=== PATIENT | female | born 1935 | race Caucasian/White ===

== ENCOUNTER → 2017-11-20 | Outpatient (CLI) | payer MEDICARE, BC ==
[~2017-11-20] MED LIST: ACET-1748 PO; ASPI-715 PO; ATEN-1 PO; DIG125 PO; ENAL20TA99 PO; ENOX120D5 SQ; FLEC50TA16 PO; HCTZ25 PO; LEVO100T95 PO; SIMV-42 PO; WAR5 PO; ZOL5 PO
--- NOTE | 2017-11-21 09:06 | RADIOLOGY IMAGING REPORT ---
FAC[facility] PATIENT NAME: EUN BRYSON : [id number] MR: [id number] V: [id number] EXAM DATE: ORDERING PHYSICIAN: TAHMINA ALMANZA TECHNOLOGIST: Phoebe Gilliland PROCEDURE:BILATERAL DIGITAL SCREENING MAMMOGRAM WITH CAD ASSISTED INTERPRETATION & 3D TOMOSYNTHESIS COMPARISON:Prior mammograms 10/07/16, 06/05/15, 03/02/14, 12/22/12, 11/25/11, 11/21/10 INDICATIONS:SCREENING FINDINGS: Small amount of mildly heterogeneous fibroglandular tissue is seen throughout the breasts. The parenchymal pattern has remained stable allowing for difference in mammographic technique & patient positioning. There is no evidence of malignant appearing mass, malignant appearing calcifications or other secondary sign of malignancy in either breast. DIAGNOSTIC CATEGORY 1--NEGATIVE. RECOMMENDATIONS: ROUTINE MAMMOGRAM AND CLINICAL EVALUATION. IMPRESSION: BIRADS 1: Negative No significant abnormality is seen Dictated by: Alessandra Quinones M.D. on 11/20/2017 at 16:48 Transcribed by: CHRISTOPH on 11/21/2017 at 8:52 Approved by: Alessandra Quinones M.D. on 11/21/2017 at 9:05 [facility]
== END ==
LOC: MAMO 00:59
PROVIDERS: ATTEND Family Medicine
DX: Z12.31 Encounter for screening mammogram for malignant neoplasm of breast (principal)
CPT/HCPCS: 77063; 77067

== ENCOUNTER → 2019-02-10 | Outpatient (CLI) | payer MEDICARE, BC | LOC: RESP 19:48 | PROVIDERS: ATTEND Internal Medicine Clinical Cardiac Electrophysiology | DX: G47.33 Obstructive sleep apnea (adult) (pediatric) (principal); G47.61 Periodic limb movement disorder; G47.36 Sleep related hypoventilation in conditions classified elsewhere ==

== ENCOUNTER → 2019-03-01 | Outpatient (CLI) | payer MEDICARE, BC ==
--- NOTE | 2019-03-02 10:06 | RADIOLOGY IMAGING REPORT ---
FACILITY: [facility] PATIENT NAME: EUN BRYSON : [id number] MR: [id number] V: [id number] EXAM DATE: ORDERING PHYSICIAN: TAHMINA ALMANZA TECHNOLOGIST: Mila Javier PROCEDURE: BILATERAL DIGITAL SCREENING MAMMOGRAM WITH CAD ASSISTED INTERPRETATION & 3D TOMOSYNTHESIS REASON FOR STUDY: Screening. FAMILY HISTORY OF BREAST CANCER: Maternal grandmother & 2 maternal aunts. BREAST PROCEDURES/TREATMENTS: Benign surgical biopsy in the Right breast. COMPARISON: 11/20/17, 10/07/16, 06/05/15, 03/02/14, 12/22/12. VIEWS OBTAINED: 2D & 3D full field CC & MLO. BREAST DENSITY: There are scattered areas of fibroglandular density throughout the breasts. MAMMOGRAM FINDINGS: The parenchymal pattern has remained stable allowing for difference in mammographic technique & patient positioning. IMPRESSION: BIRADS 1: Negative. DIAGNOSTIC CATEGORY 1--NEGATIVE. RECOMMENDATIONS: ROUTINE MAMMOGRAM AND CLINICAL EVALUATION. Dictated by: Alessandra Quinones M.D. on 03/01/2019 at 17:38 Transcribed by: CHRISTOPH on 03/02/2019 at 7:39 Approved by: Alessandra Quinones M.D. on 03/02/2019 at 10:05 [facility]
== END ==
LOC: MAMO 01:16
PROVIDERS: ATTEND Family Medicine
DX: Z12.31 Encounter for screening mammogram for malignant neoplasm of breast (principal)
CPT/HCPCS: 77063; 77067